=== PATIENT | male | born 1950 ===

== ENCOUNTER 2019-05-12 15:43 | Inpatient (IN) ==
[2019-05-12 16:26] LABS: Alanine Aminotransferase 19 U/L (16-61); Alkaline Phosphatase 101 U/L (45-117); Aspartate Amino Transferase 22 U/L (0-37); Basophils # 0.1 10*3/uL (0.0-0.2); Basophils % 0.5 % (0.0-0.8); Blood Urea Nitrogen 25 MG/DL (7-18); Calcium 7.9 MG/DL (8.5-10.1); Eosinophils % 0.4 % (0.00-10.9); Glucose 162 MG/DL (74-106); Hematocrit 42.7 VOL% (42.0-52.0); Hemoglobin 12.9 GM/DL (14.0-18.0); Immature Granulocytes % 0.5 %; Immature Granulocytes Absolute 0.05 #; Lymphocytes # 0.5 10*3/uL (1.4-4.0); Mean Corpuscular HGB Conc 30.2 GM/DL (32-36); Mean Corpuscular Volume 91.2 FL (87-102); Mean Platelet Volume 10.2 FL (9.6-12.0); Monocytes % 6.3 % (1.7-12.7); Neutrophils % 87.3 % (38.7-73.9); Osmolality,Calculated 293.8 MOS/KG (273-304); Platelet Count 199 T/CUMM (130-400); Red Blood Count 4.68 MC/CUMM (3.8-5.5); Red Cell Distribution Width 15.6 % (9.3-17.3); Total Protein 5.9 G/DL (6.4-8.3); White Blood Count 9.3 T/CUMM (4-12)
[2019-05-12 16:28] LABS: Apearance,Urine CLOUDY (Clear); Bacteria,Urine Occasional /HPF (Few); Bilirubin,Urine Negative (Negative); Blood, Urine Small mg/dL (Negative); Glucose,Urine (UA) 50 mg/dL (Negative); Hyaline Casts,Urine 21 /LPF (0-3); Ketones,Urine Negative (Negative); Mucus,Urine Many /LPF (Occasional); Nitrite,Urine Negative (Negative); Protein,Urine >=500 MG/DL; RBC,Urine 26 /HPF (0-4); Squamous Epithelial Cell,Urine Occasional /HPF (0-10); WBC,Urine 3 /HPF (0-6)
[2019-05-12 16:30] LABS: Urine Color Yellow (Yellow)
[2019-05-12] MEDS ORDERED: SODIUM CHLORIDE 0.9% 1,000 ML IV STA (16:33)
[2019-05-12 16:34] LABS: ABG Base Excess 1.8 MMOL/L (-2.5-2.5); ABG HCO3 26.1 MMOL/L (20-26); ABG Oxygen Saturation 99.4 % (95-100); ABG PCO2 51.1 MM HG (35-48); ABG PH 7.354 (7.35-7.45); ABG TCO2 24.8 MMOL/L (23-27)
[2019-05-12 16:39] LABS: Barbiturates Screen,Urine Negative (Negative); Benzodiazepines Screen,Urine Negative (Negative); Cannabinoid Screen,Urine Negative (Negative); Opiate Screen,Urine Positive (Negative); Phencyclidine Screen,Urine Negative (Negative)
[2019-05-12] MEDS ORDERED: MIDAZOLAM 2 MG/2 ML VIAL ONE (17:06)
[2019-05-12] MEDS ORDERED: MIDAZOLAM 2 MG/2 ML VIAL IV STA (17:07)
[2019-05-12] MEDS ORDERED: ALBUTEROL 2.5 MG/3 ML NEB RESP TX PRN (17:12)
[2019-05-12] MEDS ORDERED: ENOXAPARIN 100 MG/ML SYRINGE SUBCUT STA (17:34)
[2019-05-12] MEDS ORDERED: PROPOFOL 1,000 MG/100 ML BOTTLE IV ONE (17:40)
[2019-05-12] MEDS ORDERED: NOREPINEPHRINE 8 MG in SODIUM CHLORIDE 0.9% 242 ML IV PRN (17:40)
[2019-05-12] MEDS ORDERED: PHENYLEPHRINE DRIP 0 MG/0 ML PREMIX IV ONE (17:40)
[2019-05-12] MEDS ORDERED: HEPARIN/NACL 0.9% 2 UNITS/ML 500 ML IV ONE (17:42)
[2019-05-12] MEDS ORDERED: SODIUM CHLORIDE 0.9% 1,000 ML IV ONE (17:44)
[2019-05-12] MEDS: PROPOFOL 1,000 MG/100 ML BOTTLE IV SCH (18:35)
[2019-05-12] MEDS: MEROPENEM 500 MG in SODIUM CHLORIDE 0.9% 100 ML IV SCH (18:38)
[2019-05-12 18:48] LABS: Polychromasia Few
[2019-05-12 18:49] LABS: Hypochromasia Slight; Microcytosis Slight; Poikilocytosis 1+
[2019-05-12 18:50] LABS: Anisocytosis 2+; Ovalocytes Few; Platelet Estimate Normal
[2019-05-12 18:58] LABS: Troponin I 0.187 NG/ML (0.00-0.045)
[2019-05-12] MEDS: SODIUM CHLORIDE 0.9% 1,000 ML IV SCH (20:59)
[2019-05-12 22:03] LABS: Troponin I 0.197 NG/ML (0.00-0.045)
[2019-05-13 00:30] LABS: Albumin 2.8 G/DL (3.4-5.0); Bilirubin,Total 1.2 MG/DL (0.2-1.0); Calcium 7.6 MG/DL (8.5-10.1); Osmolality,Calculated 297.4 MOS/KG (273-304); Total Protein 5.8 G/DL (6.4-8.3)
[2019-05-13 04:42] LABS: ABG Base Excess 1.1 MMOL/L (-2.5-2.5); ABG HCO3 25.3 MMOL/L (20-26); ABG Oxygen Saturation 93.2 % (95-100); ABG PCO2 39.8 MM HG (35-48); ABG PH 7.416 (7.35-7.45); ABG PO2 70.2 MM HG (80-95); ABG TCO2 22.3 MMOL/L (23-27)
[2019-05-13 05:16] LABS: Basophils # 0.1 10*3/uL (0.0-0.2); Basophils % 0.5 % (0.0-0.8); Eosinophils # 0.1 10*3/uL (0.0-0.87); Eosinophils % 0.5 % (0.00-10.9); Immature Granulocytes % 0.5 %; Immature Granulocytes Absolute 0.05 #; Lymphocytes # 0.8 10*3/uL (1.4-4.0); Mean Platelet Volume 10.8 FL (9.6-12.0); Monocytes % 7.9 % (1.7-12.7); Neutrophils % 82.6 % (38.7-73.9); Platelet Count 194 T/CUMM (130-400); Red Blood Count 4.83 MC/CUMM (3.8-5.5); Red Cell Distribution Width 15.6 % (9.3-17.3); White Blood Count 10.1 T/CUMM (4-12)
[2019-05-13 05:39] LABS: Albumin 2.6 G/DL (3.4-5.0); Bilirubin,Total 1.4 MG/DL (0.2-1.0); Calcium 7.9 MG/DL (8.5-10.1); Osmolality,Calculated 294.6 MOS/KG (273-304); Risk Ratio 2.28; Thyroid Stimulating Hormone 3.36 uIU/ml (0.358-3.74); Total Protein 5.7 G/DL (6.4-8.3); VLDL CHOLESTEROL 14.4 MG/DL
[2019-05-13] MEDS: PROPOFOL 1,000 MG/100 ML BOTTLE IV SCH ×2 (05:58→17:31)
[2019-05-13] MEDS: SODIUM CHLORIDE 0.9% 1,000 ML IV SCH (06:00)
[2019-05-13] MEDS: MEROPENEM 500 MG in SODIUM CHLORIDE 0.9% 100 ML IV SCH ×2 (06:46→17:52)
[2019-05-13] MEDS ORDERED: DEXTROSE 10% 25 GM/250 ML BAG IV PRN (08:43)
[2019-05-13] MEDS ORDERED: GLUCAGON 1 MG VIAL IM PRN (08:43)
[2019-05-13] MEDS: SODIUM CHLORIDE 0.45% 1,000 ML IV SCH (09:16)
[2019-05-13] MEDS: LEVOFLOXACIN 500 MG TABLET PER TUBE SCH (09:18)
[2019-05-13] MEDS: ENOXAPARIN 40 MG/0.4 ML SYRINGE SUBCUT SCH (09:18)
[2019-05-13] MEDS: PANTOPRAZOLE 40 MG VIAL IV SCH (09:18)
[2019-05-13] MEDS ORDERED: DEXTROSE 50% 25 GM/50 ML VIAL IV PRN (13:04)
[2019-05-13] MEDS ORDERED: ASPIRIN EC 81 MG TABLET PO SCH (15:30)
[2019-05-13] MEDS: ASPIRIN CHEW 81 MG TABLET PO SCH (15:59)
[2019-05-13] MEDS: INSULIN REGULAR 100 UNIT/ML SUBCUT SCH (18:09)
[2019-05-13] MEDS: CARVEDILOL 3.125 MG TABLET PO SCH (21:55)
[2019-05-14] MEDS: INSULIN REGULAR 100 UNIT/ML SUBCUT SCH ×4 (00:28→18:39)
[2019-05-14 04:31] LABS: ABG Base Excess 1.2 MMOL/L (-2.5-2.5); ABG HCO3 25.4 MMOL/L (20-26); ABG Oxygen Saturation 95.7 % (95-100); ABG PCO2 37.6 MM HG (35-48); ABG PH 7.435 (7.35-7.45); ABG PO2 81.6 MM HG (80-95); ABG TCO2 22.1 MMOL/L (23-27)
[2019-05-14 04:36] LABS: Basophils % 0.5 % (0.0-0.8); Eosinophils # 0.1 10*3/uL (0.0-0.87); Eosinophils % 1.2 % (0.00-10.9); Hematocrit 41.1 VOL% (42.0-52.0); Hemoglobin 12.5 GM/DL (14.0-18.0); Immature Granulocytes % 0.5 %; Immature Granulocytes Absolute 0.04 #; Lymphocytes # 0.9 10*3/uL (1.4-4.0); Lymphocytes % 10.9 % (21.2-54.2); Mean Corpuscular HGB Conc 30.4 GM/DL (32-36); Mean Corpuscular Volume 88.4 FL (87-102); Mean Platelet Volume 10.5 FL (9.6-12.0); Monocytes % 8.9 % (1.7-12.7); Platelet Count 186 T/CUMM (130-400); Red Blood Count 4.65 MC/CUMM (3.8-5.5); Red Cell Distribution Width 15.7 % (9.3-17.3); White Blood Count 8.3 T/CUMM (4-12)
[2019-05-14 05:05] LABS: Albumin 2.2 G/DL (3.4-5.0); Bilirubin,Total 1.6 MG/DL (0.2-1.0); Calcium 7.4 MG/DL (8.5-10.1); Osmolality,Calculated 295.6 MOS/KG (273-304); Total Protein 5.2 G/DL (6.4-8.3)
[2019-05-14 05:11] LABS: Prealbumin 7.6 MG/DL (20-40)
[2019-05-14] MEDS: MEROPENEM 500 MG in SODIUM CHLORIDE 0.9% 100 ML IV SCH ×2 (06:18→18:44)
[2019-05-14] MEDS: SODIUM CHLORIDE 0.45% 1,000 ML IV SCH (06:24)
[2019-05-14] MEDS: ENOXAPARIN 40 MG/0.4 ML SYRINGE SUBCUT SCH (08:14)
[2019-05-14] MEDS: PROPOFOL 1,000 MG/100 ML BOTTLE IV SCH ×2 (08:22→18:00)
[2019-05-14] MEDS: LEVOFLOXACIN 500 MG TABLET PER TUBE SCH (09:47)
[2019-05-14] MEDS: ASPIRIN CHEW 81 MG TABLET PO SCH (09:47)
[2019-05-14] MEDS: CARVEDILOL 3.125 MG TABLET PO SCH (09:47)
[2019-05-14] MEDS: PANTOPRAZOLE 40 MG VIAL IV SCH (09:47)
[2019-05-14] MEDS: FUROSEMIDE 40 MG/4 ML VIAL IV SCH ×2 (09:52→15:49)
[2019-05-14 15:01] LABS: Total Protein 24 Hr Ur Result 450 MG/24HR (0-149.1); Total Volume,Urine 2500 ML (400-2000)
[2019-05-14] MEDS: POTASSIUM CHLORIDE 20 MEQ/15 ML UDCUP PO SCH ×2 (15:20→22:54)
[2019-05-14] MEDS: CARVEDILOL 6.25 MG TABLET PO SCH (22:54)
[2019-05-15] MEDS: INSULIN REGULAR 100 UNIT/ML SUBCUT SCH ×4 (00:52→18:05)
[2019-05-15 04:35] LABS: ABG Base Excess 4.1 MMOL/L (-2.5-2.5); ABG HCO3 27.2 MMOL/L (20-26); ABG Oxygen Saturation 94.5 % (95-100); ABG PCO2 35.7 MM HG (35-48); ABG PO2 74.2 MM HG (80-95); ABG TCO2 28.3 MMOL/L (23-27)
[2019-05-15 04:37] LABS: Basophils % 0.4 % (0.0-0.8); Eosinophils # 0.1 10*3/uL (0.0-0.87); Eosinophils % 1.1 % (0.00-10.9); Hematocrit 38.5 VOL% (42.0-52.0); Hemoglobin 11.9 GM/DL (14.0-18.0); Immature Granulocytes % 0.2 %; Immature Granulocytes Absolute 0.02 #; Lymphocytes # 0.8 10*3/uL (1.4-4.0); Mean Corpuscular HGB Conc 30.9 GM/DL (32-36); Mean Corpuscular Volume 86.9 FL (87-102); Mean Platelet Volume 10.2 FL (9.6-12.0); Monocytes % 9.1 % (1.7-12.7); Neutrophils % 79.2 % (38.7-73.9); Platelet Count 170 T/CUMM (130-400); Red Blood Count 4.43 MC/CUMM (3.8-5.5); Red Cell Distribution Width 15.6 % (9.3-17.3)
[2019-05-15 04:59] LABS: Calcium 7.3 MG/DL (8.5-10.1); Osmolality,Calculated 294.7 MOS/KG (273-304)
[2019-05-15] MEDS: MEROPENEM 500 MG in SODIUM CHLORIDE 0.9% 100 ML IV SCH ×2 (06:57→18:16)
[2019-05-15] MEDS: SODIUM CHLORIDE 0.45% 1,000 ML IV SCH ×2 (07:29→23:23)
[2019-05-15] MEDS: POTASSIUM CHLORIDE 20 MEQ/15 ML UDCUP PO SCH (07:35)
[2019-05-15] MEDS: PROPOFOL 1,000 MG/100 ML BOTTLE IV SCH ×3 (07:37→22:50)
[2019-05-15] MEDS: ASPIRIN CHEW 81 MG TABLET PO SCH (09:29)
[2019-05-15] MEDS: LEVOFLOXACIN 500 MG TABLET PER TUBE SCH (09:29)
[2019-05-15] MEDS: ENOXAPARIN 40 MG/0.4 ML SYRINGE SUBCUT SCH (09:29)
[2019-05-15] MEDS: FUROSEMIDE 40 MG/4 ML VIAL IV SCH ×2 (09:30→15:46)
[2019-05-15] MEDS: PANTOPRAZOLE 40 MG VIAL IV SCH (09:36)
[2019-05-15] MEDS: CARVEDILOL 6.25 MG TABLET PO SCH ×2 (10:23→21:15)
[2019-05-16] MEDS: INSULIN REGULAR 100 UNIT/ML SUBCUT SCH ×4 (01:35→18:42)
[2019-05-16] MEDS: PROPOFOL 1,000 MG/100 ML BOTTLE IV SCH ×4 (01:59→16:50)
[2019-05-16 04:41] LABS: ABG Base Excess 6.2 MMOL/L (-2.5-2.5); ABG HCO3 30.1 MMOL/L (20-26); ABG Oxygen Saturation 98.9 % (95-100); ABG PCO2 34.2 MM HG (35-48); ABG PH 7.534 (7.35-7.45); ABG TCO2 24.8 MMOL/L (23-27)
[2019-05-16 04:48] LABS: Basophils # 0.1 10*3/uL (0.0-0.2); Basophils % 0.6 % (0.0-0.8); Eosinophils # 0.4 10*3/uL (0.0-0.87); Eosinophils % 4.7 % (0.00-10.9); Hemoglobin 12.9 GM/DL (14.0-18.0); Immature Granulocytes % 0.4 %; Immature Granulocytes Absolute 0.04 #; Lymphocytes # 1.3 10*3/uL (1.4-4.0); Lymphocytes % 13.7 % (21.2-54.2); Mean Corpuscular HGB Conc 30.7 GM/DL (32-36); Mean Corpuscular Volume 86.8 FL (87-102); Mean Platelet Volume 10.6 FL (9.6-12.0); Monocytes % 8.6 % (1.7-12.7); Platelet Count 239 T/CUMM (130-400); Red Blood Count 4.84 MC/CUMM (3.8-5.5); Red Cell Distribution Width 15.7 % (9.3-17.3); White Blood Count 9.5 T/CUMM (4-12)
[2019-05-16 05:24] LABS: Calcium 7.9 MG/DL (8.5-10.1); Osmolality,Calculated 290.1 MOS/KG (273-304)
[2019-05-16] MEDS: MEROPENEM 500 MG in SODIUM CHLORIDE 0.9% 100 ML IV SCH ×2 (06:35→18:00)
[2019-05-16] MEDS: FUROSEMIDE 40 MG/4 ML VIAL IV SCH ×2 (09:23→16:29)
[2019-05-16] MEDS: PANTOPRAZOLE 40 MG VIAL IV SCH (09:24)
[2019-05-16] MEDS: POTASSIUM CHLORIDE 20 MEQ/15 ML UDCUP PER TUBE SCH ×3 (09:24→17:36)
[2019-05-16] MEDS: ASPIRIN CHEW 81 MG TABLET PO SCH (09:24)
[2019-05-16] MEDS: LEVOFLOXACIN 500 MG TABLET PER TUBE SCH (09:24)
[2019-05-16] MEDS: ENOXAPARIN 40 MG/0.4 ML SYRINGE SUBCUT SCH (09:24)
[2019-05-16] MEDS: CARVEDILOL 6.25 MG TABLET PO SCH (09:24)
[2019-05-16 10:58] LABS: ABG Base Excess 5.9 MMOL/L (-2.5-2.5); ABG HCO3 29.7 MMOL/L (20-26); ABG Oxygen Saturation 95.6 % (95-100); ABG PCO2 42.4 MM HG (35-48); ABG PH 7.463 (7.35-7.45); ABG PO2 81.6 MM HG (80-95); ABG TCO2 26.3 MMOL/L (23-27)
[2019-05-16] MEDS: DEXMEDETOMIDINE 200 MCG in SODIUM CHLORIDE 0.9% 48 ML IV PRN ×2 (17:40→21:46)
[2019-05-16] MEDS: CARVEDILOL 3.125 MG TABLET PO SCH (20:53)
[2019-05-17] MEDS: INSULIN REGULAR 100 UNIT/ML SUBCUT SCH ×4 (00:30→18:16)
[2019-05-17] MEDS: DEXMEDETOMIDINE 200 MCG in SODIUM CHLORIDE 0.9% 48 ML IV PRN ×3 (01:31→08:15)
[2019-05-17 04:29] LABS: ABG HCO3 30.6 MMOL/L (20-26); ABG Oxygen Saturation 91.4 % (95-100); ABG PCO2 49.1 MM HG (35-48); ABG PH 7.432 (7.35-7.45); ABG PO2 66.8 MM HG (80-95); ABG TCO2 28.4 MMOL/L (23-27)
[2019-05-17 04:40] LABS: Basophils % 0.6 % (0.0-0.8); Eosinophils # 0.3 10*3/uL (0.0-0.87); Eosinophils % 4.8 % (0.00-10.9); Hematocrit 41.9 VOL% (42.0-52.0); Immature Granulocytes % 0.2 %; Immature Granulocytes Absolute 0.01 #; Lymphocytes % 15.4 % (21.2-54.2); Mean Corpuscular Volume 86.4 FL (87-102); Monocytes % 7.5 % (1.7-12.7); Neutrophils % 71.5 % (38.7-73.9); Platelet Count 193 T/CUMM (130-400); Red Blood Count 4.85 MC/CUMM (3.8-5.5); Red Cell Distribution Width 15.7 % (9.3-17.3); White Blood Count 6.3 T/CUMM (4-12)
[2019-05-17 04:56] LABS: Osmolality,Calculated 293.8 MOS/KG (273-304)
[2019-05-17 05:03] LABS: Prealbumin 8.7 MG/DL (20-40)
[2019-05-17] MEDS ORDERED: DEXMEDETOMIDINE 400 MCG in SODIUM CHLORIDE 0.9% 96 ML IV PRN (05:06)
[2019-05-17] MEDS: ENOXAPARIN 40 MG/0.4 ML SYRINGE SUBCUT SCH (06:39)
[2019-05-17] MEDS: MEROPENEM 500 MG in SODIUM CHLORIDE 0.9% 100 ML IV SCH ×2 (06:39→18:34)
[2019-05-17] MEDS ORDERED: FUROSEMIDE 40 MG/4 ML VIAL IV SCH (08:35)
[2019-05-17] MEDS ORDERED: LANSOPRAZOLE ODT 30 MG TABLET PER TUBE SCH (09:00)
[2019-05-17] MEDS: FUROSEMIDE 40 MG/4 ML VIAL IV SCH ×3 (09:18→15:57)
[2019-05-17] MEDS: ASPIRIN CHEW 81 MG TABLET PO SCH (09:51)
[2019-05-17] MEDS: LEVOFLOXACIN 500 MG TABLET PER TUBE SCH (09:53)
[2019-05-17] MEDS: CARVEDILOL 3.125 MG TABLET PO SCH ×2 (10:10→21:25)
[2019-05-17 12:45] LABS: ABG Base Excess 6.7 MMOL/L (-2.5-2.5); ABG HCO3 30.4 MMOL/L (20-26); ABG Oxygen Saturation 93.1 % (95-100); ABG PCO2 43.2 MM HG (35-48); ABG PH 7.468 (7.35-7.45); ABG PO2 68.3 MM HG (80-95)
[2019-05-17] MEDS: LEVOFLOXACIN 500 MG TABLET PO SCH (15:57)
[2019-05-18] MEDS: INSULIN REGULAR 100 UNIT/ML SUBCUT SCH ×4 (00:28→17:14)
[2019-05-18 05:13] LABS: Basophils % 0.6 % (0.0-0.8); Eosinophils # 0.4 10*3/uL (0.0-0.87); Eosinophils % 6.6 % (0.00-10.9); Hematocrit 41.7 VOL% (42.0-52.0); Hemoglobin 12.8 GM/DL (14.0-18.0); Immature Granulocytes % 0.3 %; Immature Granulocytes Absolute 0.02 #; Lymphocytes % 16.4 % (21.2-54.2); Mean Corpuscular HGB Conc 30.7 GM/DL (32-36); Mean Corpuscular Volume 88.3 FL (87-102); Mean Platelet Volume 10.8 FL (9.6-12.0); Monocytes % 8.8 % (1.7-12.7); Neutrophils % 67.3 % (38.7-73.9); Platelet Count 193 T/CUMM (130-400); Red Blood Count 4.72 MC/CUMM (3.8-5.5); Red Cell Distribution Width 15.5 % (9.3-17.3); White Blood Count 6.4 T/CUMM (4-12)
[2019-05-18 05:17] LABS: ABG Base Excess 6.7 MMOL/L (-2.5-2.5); ABG HCO3 30.5 MMOL/L (20-26); ABG Oxygen Saturation 96.8 % (95-100); ABG PCO2 53.3 MM HG (35-48); ABG PH 7.401 (7.35-7.45); ABG PO2 90.4 MM HG (80-95); ABG TCO2 28.9 MMOL/L (23-27)
[2019-05-18 05:45] LABS: Calcium 8.2 MG/DL (8.5-10.1); Osmolality,Calculated 291.8 MOS/KG (273-304)
[2019-05-18] MEDS: MEROPENEM 500 MG in SODIUM CHLORIDE 0.9% 100 ML IV SCH ×2 (07:11→17:14)
[2019-05-18] MEDS: ENOXAPARIN 40 MG/0.4 ML SYRINGE SUBCUT SCH (08:59)
[2019-05-18] MEDS: FUROSEMIDE 40 MG/4 ML VIAL IV SCH ×2 (08:59→15:22)
[2019-05-18] MEDS: PANTOPRAZOLE 40 MG TABLET PO SCH (09:04)
[2019-05-18] MEDS: ASPIRIN CHEW 81 MG TABLET PO SCH (09:04)
[2019-05-18] MEDS: CARVEDILOL 3.125 MG TABLET PO SCH ×2 (09:04→20:28)
[2019-05-18] MEDS: LEVOFLOXACIN 500 MG TABLET PO SCH (15:18)
[2019-05-19 05:00] LABS: Basophils % 0.2 % (0.0-0.8); Hematocrit 46.9 VOL% (42.0-52.0); Hemoglobin 14.5 GM/DL (14.0-18.0); Immature Granulocytes % 0.5 %; Immature Granulocytes Absolute 0.04 #; Lymphocytes # 0.8 10*3/uL (1.4-4.0); Lymphocytes % 9.3 % (21.2-54.2); Mean Corpuscular HGB Conc 30.9 GM/DL (32-36); Mean Corpuscular Volume 86.1 FL (87-102); Monocytes % 2.9 % (1.7-12.7); Neutrophils % 87.1 % (38.7-73.9); Platelet Count 208 T/CUMM (130-400); Red Blood Count 5.45 MC/CUMM (3.8-5.5); Red Cell Distribution Width 14.7 % (9.3-17.3); White Blood Count 8.7 T/CUMM (4-12)
[2019-05-19 05:01] LABS: Calcium 8.7 MG/DL (8.5-10.1); Osmolality,Calculated 286.3 MOS/KG (273-304)
[2019-05-19] MEDS: INSULIN REGULAR 100 UNIT/ML SUBCUT SCH ×4 (06:33→18:32)
[2019-05-19] MEDS: MEROPENEM 500 MG in SODIUM CHLORIDE 0.9% 100 ML IV SCH ×2 (06:34→18:05)
[2019-05-19] MEDS ORDERED: HALOPERIDOL 5 MG/ML AMP IM ONE (08:34)
[2019-05-19] MEDS: ENOXAPARIN 40 MG/0.4 ML SYRINGE SUBCUT SCH (09:04)
[2019-05-19] MEDS: CARVEDILOL 3.125 MG TABLET PO SCH ×2 (09:05→20:23)
[2019-05-19] MEDS: ASPIRIN CHEW 81 MG TABLET PO SCH (09:05)
[2019-05-19] MEDS: PANTOPRAZOLE 40 MG TABLET PO SCH (09:05)
[2019-05-19] MEDS: FUROSEMIDE 40 MG/4 ML VIAL IV SCH ×2 (09:05→16:36)
[2019-05-19 09:09] LABS: ABG Base Excess 9.1 MMOL/L (-2.5-2.5); ABG HCO3 32.7 MMOL/L (20-26); ABG Oxygen Saturation 92.4 % (95-100); ABG PH 7.446 (7.35-7.45); ABG PO2 67.4 MM HG (80-95); ABG TCO2 29.9 MMOL/L (23-27)
[2019-05-19 09:10] LABS: Allen Test Positive
[2019-05-19] MEDS: LEVOFLOXACIN 500 MG TABLET PO SCH (15:14)
[2019-05-20] MEDS: INSULIN REGULAR 100 UNIT/ML SUBCUT SCH ×4 (02:27→18:33)
[2019-05-20 05:50] LABS: Basophils # 0.1 10*3/uL (0.0-0.2); Basophils % 0.8 % (0.0-0.8); Eosinophils # 0.3 10*3/uL (0.0-0.87); Eosinophils % 3.6 % (0.00-10.9); Hematocrit 45.7 VOL% (42.0-52.0); Hemoglobin 13.9 GM/DL (14.0-18.0); Immature Granulocytes Absolute 0.09 #; Lymphocytes % 10.8 % (21.2-54.2); Mean Corpuscular HGB Conc 30.4 GM/DL (32-36); Mean Corpuscular Volume 87.2 FL (87-102); Neutrophils % 76.8 % (38.7-73.9); Platelet Count 211 T/CUMM (130-400); Red Blood Count 5.24 MC/CUMM (3.8-5.5); Red Cell Distribution Width 14.8 % (9.3-17.3); White Blood Count 9.2 T/CUMM (4-12)
[2019-05-20 06:04] LABS: Calcium 8.7 MG/DL (8.5-10.1); Osmolality,Calculated 284.3 MOS/KG (273-304)
[2019-05-20] MEDS: ASPIRIN CHEW 81 MG TABLET PO SCH (09:07)
[2019-05-20] MEDS: CARVEDILOL 3.125 MG TABLET PO SCH ×2 (09:07→20:51)
[2019-05-20] MEDS: PANTOPRAZOLE 40 MG TABLET PO SCH (09:07)
[2019-05-20] MEDS: ENOXAPARIN 40 MG/0.4 ML SYRINGE SUBCUT SCH (09:07)
[2019-05-20] MEDS: FUROSEMIDE 40 MG/4 ML VIAL IV SCH ×2 (09:09→18:20)
[2019-05-20] MEDS ORDERED: CAPTOPRIL 6.25 MG TABLET PO SCH (15:00)
[2019-05-20] MEDS: LEVOFLOXACIN 500 MG TABLET PO SCH (15:11)
[2019-05-20 17:58] LABS: Apearance,Urine CLEAR (Clear); Bilirubin,Urine Negative (Negative); Blood, Urine Negative (Negative); Glucose,Urine (UA) Negative (Negative); Hyaline Casts,Urine 4 /LPF (0-3); Ketones,Urine Negative (Negative); Mucus,Urine Occasional /LPF (Occasional); Nitrite,Urine Negative (Negative); Protein,Urine Negative; Squamous Epithelial Cell,Urine Occasional /HPF (0-10); Urine Color Yellow (Yellow); Urine Urobilinogen < 2.0 EU/DL (0.2-1.0)
[2019-05-20] MEDS: CAPTOPRIL 6.25 MG TABLET PO SCH (20:51)
[2019-05-21] MEDS: INSULIN REGULAR 100 UNIT/ML SUBCUT SCH ×4 (00:26→18:45)
[2019-05-21 05:14] LABS: Calcium 8.4 MG/DL (8.5-10.1); Osmolality,Calculated 281.5 MOS/KG (273-304)
[2019-05-21] MEDS: ENOXAPARIN 40 MG/0.4 ML SYRINGE SUBCUT SCH (07:53)
[2019-05-21] MEDS: CARVEDILOL 3.125 MG TABLET PO SCH ×2 (09:32→21:32)
[2019-05-21] MEDS: PANTOPRAZOLE 40 MG TABLET PO SCH (09:32)
[2019-05-21] MEDS: ASPIRIN CHEW 81 MG TABLET PO SCH (09:32)
[2019-05-21] MEDS: CAPTOPRIL 6.25 MG TABLET PO SCH ×2 (09:33→22:27)
[2019-05-21] MEDS: FUROSEMIDE 40 MG/4 ML VIAL IV SCH ×2 (09:33→16:18)
[2019-05-21] MEDS: LEVOFLOXACIN 500 MG TABLET PO SCH (14:21)
[2019-05-22] MEDS: INSULIN REGULAR 100 UNIT/ML SUBCUT SCH ×3 (02:05→11:23)
[2019-05-22 04:46] LABS: Basophils % 0.6 % (0.0-0.8); Eosinophils # 0.4 10*3/uL (0.0-0.87); Eosinophils % 5.7 % (0.00-10.9); Hematocrit 45.7 VOL% (42.0-52.0); Hemoglobin 14.2 GM/DL (14.0-18.0); Immature Granulocytes % 0.3 %; Immature Granulocytes Absolute 0.02 #; Lymphocytes # 1.3 10*3/uL (1.4-4.0); Lymphocytes % 20.4 % (21.2-54.2); Mean Corpuscular HGB Conc 31.1 GM/DL (32-36); Mean Corpuscular Volume 84.9 FL (87-102); Mean Platelet Volume 10.1 FL (9.6-12.0); Monocytes % 9.9 % (1.7-12.7); Neutrophils % 63.1 % (38.7-73.9); Platelet Count 216 T/CUMM (130-400); Red Blood Count 5.38 MC/CUMM (3.8-5.5); White Blood Count 6.2 T/CUMM (4-12)
[2019-05-22 04:57] LABS: Calcium 8.4 MG/DL (8.5-10.1); Osmolality,Calculated 282.5 MOS/KG (273-304)
[2019-05-22] MEDS: CAPTOPRIL 6.25 MG TABLET PO SCH (08:08)
[2019-05-22] MEDS: ASPIRIN CHEW 81 MG TABLET PO SCH (08:08)
[2019-05-22] MEDS: CARVEDILOL 3.125 MG TABLET PO SCH (08:09)
[2019-05-22] MEDS: ENOXAPARIN 40 MG/0.4 ML SYRINGE SUBCUT SCH (08:09)
[2019-05-22] MEDS: FUROSEMIDE 40 MG/4 ML VIAL IV SCH (08:09)
[2019-05-22] MEDS: PANTOPRAZOLE 40 MG TABLET PO SCH (08:09)
[2019-05-22 12:10] VITALS: BP 91/57
[2019-05-22] MEDS ORDERED: POTASSIUM CHLORIDE 20 MEQ TABLET PO PRN (13:11)
== END 2019-05-22 15:20 | disposition swing bed (61) | DRG 870 ==
LOC: EDUNIT# → EDBD → N.ED 15:43 → SUATTDRO 17:12 → N.EDINP 17:12 → N.ICU 17:28 → N.TELEN 05-18 11:00
PROVIDERS: ADMIT Internal Medicine; ATTEND Internal Medicine

== ENCOUNTER 2019-07-08 05:47 | Inpatient (IN) ==
[2019-07-08] MEDS ORDERED: ceFAZolin 1,000 MG VIAL ONE (05:56)
[2019-07-08] MEDS ORDERED: VANCOMYCIN 1,000 MG VIAL ONE (05:56)
[2019-07-08] MEDS ORDERED: ceFAZolin 1,000 MG in SYRINGE 1 EACH IV ONE (08:00)
[2019-07-08] MEDS ORDERED: VANCOMYCIN INJ 1,000 MG in SODIUM CHLORIDE 0.9% 250 ML IV ONE (08:00)
[2019-07-08] MEDS: LACTATED RINGERS 1,000 ML IV SCH (08:00)
[2019-07-08] MEDS ORDERED: LACTULOSE 20 GM/30 ML UDCUP PO PRN (08:42)
[2019-07-08] MEDS ORDERED: BISACODYL 10 MG SUPP RECTAL PRN (08:42)
[2019-07-08] MEDS ORDERED: MAGNESIUM HYDROXIDE SUSP 30 ML UDCUP PO PRN (08:42)
[2019-07-08] MEDS ORDERED: TEMAZEPAM 7.5 MG CAPSULE PO PRN (08:42)
[2019-07-08] MEDS ORDERED: MORPHINE 4 MG/1 ML VIAL IV PRN (08:42)
[2019-07-08] MEDS ORDERED: ONDANSETRON 4 MG/2 ML VIAL IV PRN (08:42)
[2019-07-08] MEDS ORDERED: diphenhydrAMINE CAP 25 MG CAPSULE PO PRN (08:42)
[2019-07-08] MEDS ORDERED: PROMETHAZINE 25 MG/1 ML VIAL IM PRN (08:42)
[2019-07-08] MEDS ORDERED: CARVEDILOL 3.125 MG TABLET PO SCH (09:00)
[2019-07-08] MEDS ORDERED: FUROSEMIDE 20 MG TABLET PO SCH (09:00)
[2019-07-08] MEDS ORDERED: DOCUSATE SODIUM 100 MG CAPSULE PO SCH (09:00)
[2019-07-08] MEDS ORDERED: ASPIRIN CHEW 81 MG TABLET PO SCH (09:00)
[2019-07-08] MEDS ORDERED: PANTOPRAZOLE 40 MG TABLET PO SCH (09:00)
[2019-07-08] MEDS ORDERED: ALBUTEROL/IPRATROPIUM 3 ML NEB RESP TX ONE ×3 (09:00→12:30)
[2019-07-08] MEDS ORDERED: CAPTOPRIL 6.25 MG TABLET PO SCH (09:00)
[2019-07-08] MEDS ORDERED: LIDOCAINE 1% 5 ML VIAL ONE (09:16)
[2019-07-08] MEDS ORDERED: BUPIVACAINE 0.5% 50 ML VIAL ONE (09:16)
[2019-07-08] MEDS ORDERED: EPINEPHrine 1 MG/ML VIAL ONE (09:17)
[2019-07-08] MEDS ORDERED: MIDAZOLAM 2 MG/2 ML VIAL ONE (09:17)
[2019-07-08] MEDS ORDERED: DEXAMETHASONE 4 MG/1 ML VIAL ONE (09:17)
[2019-07-08 12:36] LABS: ABG PH 7.248 (7.35-7.45)
[2019-07-08 12:37] LABS: ABG Base Excess 2.5 MMOL/L (-2.5-2.5); ABG HCO3 31.8 MMOL/L (20-26); ABG Oxygen Saturation 94.8 % (95-100); ABG PO2 89.4 MM HG (80-95); ABG TCO2 34.1 MMOL/L (23-27)
[2019-07-08 12:38] LABS: ABG PCO2 74.6 MM HG (35-48)
[2019-07-08] MEDS ORDERED: GLUCAGON 1 MG VIAL IM PRN (13:19)
[2019-07-08] MEDS ORDERED: DEXTROSE 50% 25 GM/50 ML VIAL IV PRN (13:19)
[2019-07-08 14:30] LABS: Basophils # 0.1 10*3/uL (0.0-0.2); Basophils % 0.8 % (0.0-0.8); Eosinophils # 0.1 10*3/uL (0.0-0.87); Eosinophils % 0.9 % (0.00-10.9); Hematocrit 42.8 VOL% (42.0-52.0); Hemoglobin 12.6 GM/DL (14.0-18.0); Immature Granulocytes % 0.3 %; Immature Granulocytes Absolute 0.02 #; Lymphocytes # 0.6 10*3/uL (1.4-4.0); Mean Corpuscular HGB Conc 29.4 GM/DL (32-36); Mean Corpuscular Volume 90.3 FL (87-102); Mean Platelet Volume 9.8 FL (9.6-12.0); Monocytes % 4.7 % (1.7-12.7); Neutrophils % 84.3 % (38.7-73.9); Platelet Count 261 T/CUMM (130-400); Red Blood Count 4.74 MC/CUMM (3.8-5.5); Red Cell Distribution Width 17.4 % (9.3-17.3); White Blood Count 6.3 T/CUMM (4-12)
[2019-07-08 14:45] LABS: Troponin I < 0.015 NG/ML (0.00-0.045)
[2019-07-08 14:51] LABS: Albumin 3.4 G/DL (3.4-5.0); Calcium 8.1 MG/DL (8.5-10.1)
[2019-07-08 15:24] LABS: Apearance,Urine CLEAR (Clear); Bilirubin,Urine Negative (Negative); Blood, Urine Negative (Negative); Glucose,Urine (UA) Negative (Negative); Ketones,Urine Negative (Negative); Mucus,Urine Occasional /LPF (Occasional); Nitrite,Urine Negative (Negative); Protein,Urine Negative; RBC,Urine <1 /HPF (0-4); Squamous Epithelial Cell,Urine Occasional /HPF (0-10); Urine Color Yellow (Yellow); Urine Urobilinogen < 2.0 EU/DL (0.2-1.0)
[2019-07-08] MEDS: FUROSEMIDE 40 MG/4 ML VIAL IV SCH (15:56)
[2019-07-08] MEDS ORDERED: ceFAZolin 2,000 MG in PREMIX 1 EACH IV SCH (16:00)
[2019-07-08] MEDS: INSULIN LISPRO 100 UNIT/ML SUBCUT SCH ×2 (17:09→21:30)
[2019-07-08 17:54] LABS: Troponin I < 0.015 NG/ML (0.00-0.045)
[2019-07-08] MEDS: ENOXAPARIN 40 MG/0.4 ML SYRINGE SUBCUT SCH (17:54)
[2019-07-08] MEDS: ALBUTEROL/IPRATROPIUM 3 ML NEB RESP TX SCH (19:56)
[2019-07-08] MEDS ORDERED: FONDAPARINUX 2.5 MG/0.5 ML SYRINGE SUBCUT SCH (20:00)
[2019-07-08 20:06] LABS: Troponin I < 0.015 NG/ML (0.00-0.045)
[2019-07-08] MEDS: LOSARTAN 25 MG TABLET PO SCH (21:27)
[2019-07-08] MEDS: CARVEDILOL 3.125 MG TABLET PO SCH (21:29)
[2019-07-09] MEDS: ALBUTEROL/IPRATROPIUM 3 ML NEB RESP TX SCH ×4 (03:12→19:14)
[2019-07-09 05:51] LABS: Basophils % 0.5 % (0.0-0.8); Eosinophils % 0.2 % (0.00-10.9); Hematocrit 41.9 VOL% (42.0-52.0); Immature Granulocytes % 0.5 %; Immature Granulocytes Absolute 0.04 #; Lymphocytes % 11.6 % (21.2-54.2); Mean Corpuscular HGB Conc 28.6 GM/DL (32-36); Mean Corpuscular Volume 91.5 FL (87-102); Mean Platelet Volume 9.9 FL (9.6-12.0); Monocytes % 7.7 % (1.7-12.7); Neutrophils % 79.5 % (38.7-73.9); Platelet Count 272 T/CUMM (130-400); Red Blood Count 4.58 MC/CUMM (3.8-5.5); Red Cell Distribution Width 17.1 % (9.3-17.3); White Blood Count 8.5 T/CUMM (4-12)
[2019-07-09 06:01] LABS: Calcium 8.3 MG/DL (8.5-10.1); Osmolality,Calculated 284.1 MOS/KG (273-304); Risk Ratio 3.26; VLDL CHOLESTEROL 15.6 MG/DL
[2019-07-09 06:12] LABS: Hypochromasia 1+; Microcytosis 1+
[2019-07-09 06:13] LABS: Ovalocytes Slight; Platelet Estimate Normal
[2019-07-09] MEDS ORDERED: GLUCAGON 1 MG VIAL IM PRN (07:50)
[2019-07-09] MEDS ORDERED: DEXTROSE 50% 25 GM/50 ML VIAL IV PRN (07:50)
[2019-07-09] MEDS: LACTATED RINGERS 1,000 ML IV SCH ×2 (08:17→15:48)
[2019-07-09] MEDS: INSULIN LISPRO 100 UNIT/ML SUBCUT SCH ×4 (09:17→22:58)
[2019-07-09] MEDS: CARVEDILOL 3.125 MG TABLET PO SCH ×2 (09:17→23:08)
[2019-07-09] MEDS: ASPIRIN EC 81 MG TABLET PO SCH (09:18)
[2019-07-09] MEDS: PANTOPRAZOLE 40 MG TABLET PO SCH (09:18)
[2019-07-09] MEDS: LOSARTAN 25 MG TABLET PO SCH ×2 (09:19→23:07)
[2019-07-09] MEDS: FUROSEMIDE 40 MG/4 ML VIAL IV SCH (09:21)
[2019-07-09 13:31] LABS: Calcium 8.5 MG/DL (8.5-10.1)
[2019-07-09] MEDS ORDERED: ONDANSETRON 4 MG/2 ML VIAL IV PRN (17:09)
[2019-07-09] MEDS ORDERED: ACETAMINOPHEN 325 MG TABLET PO PRN (17:09)
[2019-07-09] MEDS ORDERED: DOCUSATE SODIUM 100 MG CAPSULE PO PRN (17:09)
[2019-07-09] MEDS ORDERED: PROMETHAZINE 25 MG/1 ML VIAL IM PRN (17:09)
[2019-07-09] MEDS ORDERED: LACTULOSE 20 GM/30 ML UDCUP PO PRN (17:09)
[2019-07-09] MEDS ORDERED: BISACODYL 5 MG TABLET PO PRN (17:09)
[2019-07-09] MEDS ORDERED: diphenhydrAMINE CAP 25 MG CAPSULE PO PRN (17:09)
[2019-07-09] MEDS: ENOXAPARIN 40 MG/0.4 ML SYRINGE SUBCUT SCH (18:24)
[2019-07-10] MEDS: ALBUTEROL/IPRATROPIUM 3 ML NEB RESP TX SCH ×3 (00:45→12:46)
[2019-07-10 04:56] LABS: Basophils # 0.1 10*3/uL (0.0-0.2); Basophils % 0.6 % (0.0-0.8); Eosinophils # 0.1 10*3/uL (0.0-0.87); Eosinophils % 1.5 % (0.00-10.9); Immature Granulocytes % 0.4 %; Immature Granulocytes Absolute 0.03 #; Lymphocytes # 1.3 10*3/uL (1.4-4.0); Lymphocytes % 15.8 % (21.2-54.2); Mean Corpuscular HGB Conc 28.7 GM/DL (32-36); Mean Platelet Volume 9.8 FL (9.6-12.0); Monocytes % 8.7 % (1.7-12.7); Platelet Count 239 T/CUMM (130-400); Red Blood Count 4.44 MC/CUMM (3.8-5.5); Red Cell Distribution Width 17.1 % (9.3-17.3); White Blood Count 8.1 T/CUMM (4-12)
[2019-07-10 05:11] LABS: Calcium 8.4 MG/DL (8.5-10.1); Osmolality,Calculated 284.1 MOS/KG (273-304)
[2019-07-10 05:42] LABS: Hematocrit 40.2 VOL% (42.0-52.0); Hemoglobin 11.6 GM/DL (14.0-18.0)
[2019-07-10 05:46] LABS: Anisocytosis 1+
[2019-07-10 05:47] LABS: Ovalocytes Few; Platelet Estimate Adequate
[2019-07-10] MEDS: INSULIN LISPRO 100 UNIT/ML SUBCUT SCH ×3 (08:15→16:05)
[2019-07-10] MEDS: LOSARTAN 25 MG TABLET PO SCH (09:51)
[2019-07-10] MEDS: CARVEDILOL 3.125 MG TABLET PO SCH (09:52)
[2019-07-10] MEDS: PANTOPRAZOLE 40 MG TABLET PO SCH (09:52)
[2019-07-10] MEDS: FUROSEMIDE 40 MG/4 ML VIAL IV SCH (09:52)
[2019-07-10] MEDS: ASPIRIN EC 81 MG TABLET PO SCH (09:52)
[2019-07-10] MEDS: LACTATED RINGERS 1,000 ML IV SCH (11:02)
[2019-07-10] MEDS: ENOXAPARIN 40 MG/0.4 ML SYRINGE SUBCUT SCH (16:21)
[2019-07-10 16:33] VITALS: BP 135/75
== END 2019-07-10 18:22 | disposition home or self-care (01) | DRG 553 ==
LOC: N.OR 05:47 → N.SDSINP 05:48 → N.3E 15:48
PROVIDERS: ADMIT Orthopaedic Surgery; ATTEND Orthopaedic Surgery

== ENCOUNTER 2019-07-13 08:57 | Inpatient (IN) ==
[2019-07-13] MEDS ORDERED: ACETAMINOPHEN 325 MG TABLET PO PRN (12:43)
[2019-07-13] MEDS: ENOXAPARIN 40 MG/0.4 ML SYRINGE SUBCUT SCH (14:32)
[2019-07-13] MEDS: ASPIRIN CHEW 81 MG TABLET PO SCH (14:33)
[2019-07-13] MEDS: CARVEDILOL 3.125 MG TABLET PO SCH ×2 (14:33→21:11)
[2019-07-13] MEDS: FUROSEMIDE 40 MG TABLET PO SCH ×2 (14:33→21:11)
[2019-07-13 20:11] LABS: Barbiturates Screen,Urine Negative (Negative); Benzodiazepines Screen,Urine Negative (Negative); Cannabinoid Screen,Urine Negative (Negative); Opiate Screen,Urine Negative (Negative); Phencyclidine Screen,Urine Negative (Negative)
[2019-07-13] MEDS: SACUBITRIL/VALSARTAN 49-51 MG TABLET PO SCH (21:11)
[2019-07-14 04:48] LABS: Basophils % 0.4 % (0.0-0.8); Eosinophils # 0.1 10*3/uL (0.0-0.87); Eosinophils % 1.2 % (0.00-10.9); Hematocrit 40.6 VOL% (42.0-52.0); Hemoglobin 12.2 GM/DL (14.0-18.0); Immature Granulocytes % 0.3 %; Immature Granulocytes Absolute 0.03 #; Lymphocytes # 0.9 10*3/uL (1.4-4.0); Lymphocytes % 9.4 % (21.2-54.2); Mean Corpuscular Volume 86.8 FL (87-102); Monocytes % 7.5 % (1.7-12.7); Neutrophils % 81.2 % (38.7-73.9); Platelet Count 206 T/CUMM (130-400); Red Blood Count 4.68 MC/CUMM (3.8-5.5); Red Cell Distribution Width 17.4 % (9.3-17.3); White Blood Count 9.4 T/CUMM (4-12)
[2019-07-14 05:06] LABS: Calcium 8.2 MG/DL (8.5-10.1); Osmolality,Calculated 277.5 MOS/KG (273-304)
[2019-07-14] MEDS: ASPIRIN CHEW 81 MG TABLET PO SCH (08:35)
[2019-07-14] MEDS: SACUBITRIL/VALSARTAN 49-51 MG TABLET PO SCH ×2 (08:36→22:23)
[2019-07-14] MEDS: FUROSEMIDE 40 MG TABLET PO SCH ×2 (08:36→22:23)
[2019-07-14] MEDS: PANTOPRAZOLE 40 MG TABLET PO SCH (08:36)
[2019-07-14] MEDS: CARVEDILOL 3.125 MG TABLET PO SCH ×2 (08:36→22:23)
[2019-07-14] MEDS: ENOXAPARIN 40 MG/0.4 ML SYRINGE SUBCUT SCH (12:30)
[2019-07-15 04:58] LABS: Basophils % 0.6 % (0.0-0.8); Eosinophils # 0.2 10*3/uL (0.0-0.87); Eosinophils % 2.9 % (0.00-10.9); Hematocrit 39.7 VOL% (42.0-52.0); Hemoglobin 12.6 GM/DL (14.0-18.0); Immature Granulocytes % 0.3 %; Immature Granulocytes Absolute 0.02 #; Lymphocytes # 0.9 10*3/uL (1.4-4.0); Lymphocytes % 13.9 % (21.2-54.2); Mean Corpuscular HGB Conc 31.7 GM/DL (32-36); Mean Corpuscular Volume 85.6 FL (87-102); Mean Platelet Volume 10.3 FL (9.6-12.0); Monocytes % 8.5 % (1.7-12.7); Neutrophils % 73.8 % (38.7-73.9); Platelet Count 217 T/CUMM (130-400); Red Blood Count 4.64 MC/CUMM (3.8-5.5); Red Cell Distribution Width 17.4 % (9.3-17.3); White Blood Count 6.3 T/CUMM (4-12)
[2019-07-15 05:19] LABS: Osmolality,Calculated 277.7 MOS/KG (273-304)
[2019-07-15] MEDS: ENOXAPARIN 40 MG/0.4 ML SYRINGE SUBCUT SCH (09:07)
[2019-07-15] MEDS: POTASSIUM CHLORIDE 20 MEQ TABLET PO PRN ×3 (09:08→13:11)
[2019-07-15] MEDS: SACUBITRIL/VALSARTAN 49-51 MG TABLET PO SCH ×2 (09:08→20:46)
[2019-07-15] MEDS: ASPIRIN CHEW 81 MG TABLET PO SCH (09:08)
[2019-07-15] MEDS: PANTOPRAZOLE 40 MG TABLET PO SCH (09:08)
[2019-07-15] MEDS: CARVEDILOL 3.125 MG TABLET PO SCH ×2 (09:08→20:46)
[2019-07-15] MEDS: FUROSEMIDE 40 MG TABLET PO SCH ×2 (09:08→20:46)
[2019-07-15] MEDS ORDERED: TUBERCULIN SKIN TEST 0.1 ML SYRINGE INTRADERM ONE (15:00)
[2019-07-15] MEDS: APIXABAN 2.5 MG TABLET PO SCH (20:46)
[2019-07-15] MEDS ORDERED: ATORVASTATIN 40 MG TABLET PO SCH (21:00)
[2019-07-16 05:12] LABS: Risk Ratio 5.79; VLDL CHOLESTEROL 27.6 MG/DL
[2019-07-16] MEDS: SACUBITRIL/VALSARTAN 49-51 MG TABLET PO SCH (09:14)
[2019-07-16] MEDS: ASPIRIN CHEW 81 MG TABLET PO SCH (09:14)
[2019-07-16] MEDS: APIXABAN 2.5 MG TABLET PO SCH (09:14)
[2019-07-16] MEDS: FUROSEMIDE 40 MG TABLET PO SCH (09:15)
[2019-07-16] MEDS: CARVEDILOL 3.125 MG TABLET PO SCH (09:15)
[2019-07-16] MEDS: PANTOPRAZOLE 40 MG TABLET PO SCH (09:15)
[2019-07-16 12:40] VITALS: BP 104/67
== END 2019-07-16 13:30 | DRG 65 ==
LOC: N.CC 12:22 → SUATTDRO 12:22 → N.2E 07-14 12:21
PROVIDERS: ADMIT Internal Medicine; ATTEND Hospitalist